=== PATIENT | male | born 1950 | race Caucasian/White ===

== ENCOUNTER → 2024-03-05 | Outpatient (CLI) | payer OTHER, SELFPAY ==
[2024-03-05 17:40] LABS: Thyroid Stimulating Hormone 3.19 uIU/mL (0.55-4.78)
[2024-03-13 06:36] LABS: ANA Screen, IFA NEGATIVE (NEGATIVE)
== END | disposition home or self-care (01) ==
LOC: COPL 15:15
PROVIDERS: PCP Registered Nurse; Referring Provider Specialist; Visit Provider Specialist
DX: R53.83 Other fatigue (principal); R14.0 Abdominal distension (gaseous); R10.10 Upper abdominal pain, unspecified
CPT/HCPCS: 36415; 84443; 86038

== ENCOUNTER → 2024-05-07 | Outpatient (CLI) | payer OTHER, SELFPAY ==
--- NOTE | 2024-05-07 08:41 | XR_ITS ---
Examination: Abdomen sonogram, complete Date and time of exam: May 07, 2024 at 0848 hours INDICATIONS: Onset right upper abdominal pain beginning one month ago. Technique: Multiple real-time grayscale transabdominal sonographic images of the abdomen have been obtained. Findings: Normal gallbladder Normal common bile duct 0.3 cm Pancreatic head 2.6 cm Aorta not enlarged Mild hepatomegaly 16.7 cm fatty infiltration no focal liver lesions Normal hepatopedal portal venous flow Patent IVC Right kidney 9.8 x 6.3 x 6.4 cm cortex 1.7 cm Small benign cysts, the largest 2.2 cm lower pole Left kidney 10.1 x 3.9 x 6.0 cm cortex 1.5 cm 24 mm lower pole cyst Mild bilateral renal parenchymal scar formation Spleen 9.6 cm IMPRESSION: Normal gallbladder Mild hepatomegaly fatty infiltration Mild bilateral renal parenchymal scar formation
== END | disposition home or self-care (01) ==
LOC: CDIM 08:26
PROVIDERS: PCP Family Medicine; Referring Provider Registered Nurse; Visit Provider Registered Nurse
DX: K76.0 Fatty (change of) liver, not elsewhere classified (principal); N28.89 Other specified disorders of kidney and ureter
CPT/HCPCS: 76700

== ENCOUNTER → 2024-05-22 | Outpatient (CLI) | payer OTHER, SELFPAY ==
--- NOTE | 2024-05-22 15:30 | XR_ITS ---
Examination: CT abdomen without intravenous contrast. Coronal 2-D reconstructions. Sagittal 2-D reconstructions. Date and time of exam:May 22, 2024 1523 hours INDICATIONS: Right upper quadrant abdominal pain beginning 45 days ago lap band history CTDI: vol (mGy): 12.1 DLP: (mGycm): 387 Technique: Axial images of the abdomen have been obtained, 3 mm slice thickness, abdomen without intravenous contrast 2-D sagittal coronal reconstructions Low dose protocols were performed. One or more of the following dose reduction techniques were used; automated exposure control, adjustment of the mA and/or KV according to patient size, use of iterative reconstruction technique. Findings: Retrocardiac small gastric hernia Lap band device No focal liver or splenic lesion No gallstones No pancreatic or adrenal mass Perinephric stranding 12 mm left renal cyst 10 mm right renal cyst No renal or ureteral calculi, no hydronephrosis Abdominal aortic calcification no aneurysmal dilatation No pericecal inflammatory change No bowel obstruction IMPRESSION: Perinephric stranding, consider urinary tract infection
== END | disposition home or self-care (01) ==
PROVIDERS: PCP Registered Nurse; Referring Provider Registered Nurse; Visit Provider Registered Nurse
DX: N28.89 Other specified disorders of kidney and ureter (principal)
CPT/HCPCS: 74150

== ENCOUNTER → 2024-06-05 | Outpatient (CLI) | payer OTHER, SELFPAY ==
[2024-06-05 08:04] LABS: Collection Type, Urine Clean Catch
[2024-06-05 08:33] LABS: Basophils % (Auto) 1 % (0-2.5); Eosinophils # (Auto) 0.1 Thou/mm3 (0.0-0.5); Eosinophils % (Auto) 2 % (0-10); Hemoglobin 15.3 g/dL (13.5-16.0); Immature Granulocytes % (Auto) 1 % (0-0); Immature Granulocytes Auto 0.04 Thou/mm3 (0.00-0.00); Lymphocytes # (Auto) 1.6 Thou/mm3 (1.0-4.8); Lymphocytes % (Auto) 27 % (10-50); Mean Corpuscular HGB Conc 33.3 g/dl (31.0-37.0); Mean Corpuscular Hemoglobin 31.4 pg (25.0-35.0); Mean Corpuscular Volume 94 fL (80-100); Monocytes # (Auto) 0.9 Thou/mm3 (0.0-0.8); Monocytes % (Auto) 14 % (0-12); Neutrophils # (Auto) 3.3 Thou/mm3 (1.8-7.7); Neutrophils % (Auto) 56 % (37-80); Nucleated Red Blood Cell % 0 /100 WBC (0); Platelet Count 225 Thou/mm3 (140-440); RDW Standard Deviation 46.3 fL (35.1-43.9); Red Blood Count 4.88 Miln/mm3 (4.50-5.90)
[2024-06-05 08:37] LABS: Glucose Estimated Average 108 mg/dL (80-131); Hemoglobin A1C 5.4 % Hgb (4.8-6.0); Prostate Specific Antigen 3.46 ng/mL (0-4.00)
[2024-06-05 08:44] LABS: Alanine Aminotransferase 24 U/L (10-49); Albumin, Serum 4.2 gm/dL (3.4-4.8); Albumin/Globulin Ratio 1.8 (1.2-2.2); Alkaline Phosphatase 69 U/L (46-116); Anion Gap 5 (7-16); Aspartate Amino Transferase 13 U/L (0-34); BUN/Creatinine Ratio 19 Ratio (12-20); Bilirubin,Total 0.8 mg/dL (0.3-1.2); Blood Urea Nitrogen 19 mg/dL (9-23); Calcium 9.4 mg/dL (8.3-10.6); Calcium (Corrected) 9.4 mg/dL (8.5-10.1); Carbon Dioxide 29.3 mMol/L (20.0-31.0); Cardiac Risk Estimate 2.4 RATIO (4.0-6.7); Chloride 105 mMol/L (98-107); Cholesterol 137 mg/dL (132-200); Globulin 2.3 gm/dL (2.3-3.5); Glucose 98 mg/dL (74-106); HDL Cholesterol 56 mg/dL (40-60); LDL Cholesterol,Calculated 67 mg/dL (0-130); Osmolality,Calculated 279 (275-295); Potassium 4.6 mMol/L (3.4-5.1); Sodium 139 mMol/L (136-145); Thyroid Stimulating Hormone 1.85 uIU/mL (0.55-4.78); Total Protein 6.5 gm/dL (5.7-8.2); Triglycerides 69 mg/dL (30-150); Vitamin B12 364 pg/mL (211-911); Vitamin D 25 Hydroxy Total 26.3 ng/mL (7.3-40.2); eGFR > 60 See Note
[2024-06-05 08:48] LABS: Bacteria,Urine Rare; Bilirubin,Urine Negative (Negative); Blood,Urine Negative (Negative); Clarity,Urine Clear (Clear/Hazy); Color,Urine Yellow (Lt Yel-Yel); Glucose, Urine Negative (Negative); Ketones,Urine Negative (Negative); Leukocyte Esterase,Urine Positive (Negative); Nitrite,Urine Negative (Negative); Protein,Urine Negative (Neg - Trace); RBC,Urine 4 /hpf (0-3); Specific Gravity,Urine 1.022 (1.001-1.035); Squamous Epithelial Cell,Urine < 1 /hpf (0-5); WBC,Urine 15 /hpf (0-5)
[2024-06-05 09:00] LABS: Culture Indicated,Urine Yes
== END | disposition home or self-care (01) ==
LOC: COPL 07:04
PROVIDERS: PCP Family Medicine; Referring Provider Registered Nurse; Visit Provider Registered Nurse
DX: Z00.00 Encounter for general adult medical examination without abnormal findings (principal); N40.1 Benign prostatic hyperplasia with lower urinary tract symptoms; E78.5 Hyperlipidemia, unspecified
CPT/HCPCS: 36415; 80053; 80061; 81001; 82306; 82607; 83036; 84153; 84443; 85025; 87077; 87086; 87186

== ENCOUNTER → 2024-06-25 | Outpatient (CLI) | payer OTHER, SELFPAY ==
--- NOTE | 2024-06-25 16:35 | XR_ITS ---
Examination: Abdomen AP single view Technique: AP portable supine abdomen, single view Exam date and time: June 25, 2024 at 1700 hrs. Indications: Abdominal pain beginning 2 months ago Findings: Lap band device noted Moderate to large amounts of stool in the right colon No obstruction No free air Mild prominence left ventricle Mild to moderate right hip osteoarthritis moderate to advanced left hip osteoarthritis Impression: Moderate to large amounts of stool in the right colon
== END | disposition home or self-care (01) ==
LOC: CDIM 16:28
PROVIDERS: Referring Provider Specialist; Visit Provider Specialist
DX: K59.00 Constipation, unspecified (principal)
CPT/HCPCS: 74018

== ENCOUNTER → 2024-08-16 | Outpatient (BNVA) | payer OTHER, SELFPAY | END | disposition home or self-care (01) | PROVIDERS: PCP Family Medicine; Referring Provider Family Medicine; Visit Provider Urology | DX: N40.1 Benign prostatic hyperplasia with lower urinary tract symptoms (principal); N13.8 Other obstructive and reflux uropathy; I10 Essential (primary) hypertension; E66.9 Obesity, unspecified; F17.210 Nicotine dependence, cigarettes, uncomplicated; E78.00 Pure hypercholesterolemia, unspecified; I25.10 Atherosclerotic heart disease of native coronary artery without angina pectoris; Z95.5 Presence of coronary angioplasty implant and graft; I25.2 Old myocardial infarction | CPT/HCPCS: 81003; 99203; G0463 ==

== ENCOUNTER → 2024-08-17 | Outpatient (BNVA) | payer OTHER, SELFPAY | END | disposition home or self-care (01) | PROVIDERS: PCP Family Medicine; Referring Provider Family Medicine; Visit Provider Urology | DX: Z76.89 Persons encountering health services in other specified circumstances (principal) | CPT/HCPCS: 99212; G0463 ==

== ENCOUNTER → 2024-09-20 | Outpatient (BNVA) | payer OTHER, SELFPAY | END | disposition home or self-care (01) | PROVIDERS: PCP Family Medicine; Referring Provider Family Medicine; Visit Provider Urology | DX: N40.1 Benign prostatic hyperplasia with lower urinary tract symptoms (principal); R39.12 Poor urinary stream; R39.198 Other difficulties with micturition; Z53.8 Procedure and treatment not carried out for other reasons; I10 Essential (primary) hypertension; F17.210 Nicotine dependence, cigarettes, uncomplicated; Z71.6 Tobacco abuse counseling | CPT/HCPCS: 99212; G0463 ==

== ENCOUNTER → 2024-11-01 | Outpatient (BNVA) | payer OTHER, SELFPAY | END | disposition home or self-care (01) | PROVIDERS: PCP Family Medicine; Referring Provider Family Medicine; Visit Provider Urology | DX: N40.1 Benign prostatic hyperplasia with lower urinary tract symptoms (principal); R39.12 Poor urinary stream; I10 Essential (primary) hypertension; E78.00 Pure hypercholesterolemia, unspecified; I25.10 Atherosclerotic heart disease of native coronary artery without angina pectoris; Z95.5 Presence of coronary angioplasty implant and graft; I25.2 Old myocardial infarction; F17.210 Nicotine dependence, cigarettes, uncomplicated | CPT/HCPCS: 51741; 51798 ==

== ENCOUNTER → 2024-12-11 | Outpatient (BNVA) | payer OTHER, SELFPAY | END | disposition home or self-care (01) | PROVIDERS: PCP Family Medicine; Referring Provider Family Medicine; Visit Provider Physician Assistant | DX: N40.1 Benign prostatic hyperplasia with lower urinary tract symptoms (principal); Z87.440 Personal history of urinary (tract) infections; I10 Essential (primary) hypertension; E66.9 Obesity, unspecified; Z68.34 Body mass index [BMI] 34.0-34.9, adult; F17.210 Nicotine dependence, cigarettes, uncomplicated; I25.2 Old myocardial infarction; I25.10 Atherosclerotic heart disease of native coronary artery without angina pectoris; Z95.5 Presence of coronary angioplasty implant and graft; E78.00 Pure hypercholesterolemia, unspecified; G47.30 Sleep apnea, unspecified; Z95.0 Presence of cardiac pacemaker | CPT/HCPCS: Q3014 ==

== ENCOUNTER → 2025-01-21 | Outpatient (CLI) | payer OTHER, SELFPAY ==
--- NOTE | 2025-01-21 15:59 | XR_ITS ---
Examination: Lumbar spine, 5 views Technique: Lumbar spine AP, lateral, coned lateral lower lumbar spine, bilateral obliques 5 views Exam date and time: January 21, 2025 1619 hrs., Comparison July 06, 2021 Indications: Back pain several months. Findings: Moderate osteopenia. Thoracolumbar dextroscoliosis 15 degrees Moderate narrowing hip joints Diffuse moderate facet arthropathy Prominent lumbar spondylosis Moderate to advanced diffuse lumbar degenerative disc disease, most severe at L1-L2, L2-L3, L5-S1 No spondylolisthesis Impression: Moderate to advanced diffuse lumbar degenerative disc disease with significant spinal stenosis, most severe L1-L2, L2-L3, L5-S1
== END | disposition home or self-care (01) ==
LOC: CDIM 15:50
PROVIDERS: Referring Provider Registered Nurse; Visit Provider Registered Nurse
DX: M51.360 Other intervertebral disc degeneration, lumbar region with discogenic back pain only (principal); M48.061 Spinal stenosis, lumbar region without neurogenic claudication; M51.370 Other intervertebral disc degeneration, lumbosacral region with discogenic back pain only; M48.07 Spinal stenosis, lumbosacral region
CPT/HCPCS: 72110

== ENCOUNTER 2025-01-27 04:28 | Emergency (ER) | payer OTHER, SELFPAY ==
[2025-01-27 04:28] VITALS: BMI 34.2
[2025-01-27 04:39] VITALS: BP 156/94; RESP 18; TEMP 36.8; O2SAT 98
--- NOTE | 2025-01-27 05:09 | PD.EDBACK ---
ED Back Injury Pain RME/HPI General Chief Complaint: Back Pain/Injury Stated Complaint: LOW BACK PAIN Time Seen by Provider: 01/27/25 05:07 Arrival date/time: 01/27/25 04:28 This is a case of 74-year-old male who came in in the emergency room due to bilateral flank pain radiating to the lower back today denies any abdominal pain nausea vomiting fever or chills patient was here yesterday where a full workup was performed patient to blood test was reviewed and everything were normal urinalysis was also normal patient ultrasound showed a nephrolithiasis patient have history of chronic back pain kidney stone and BPH patient stated that he was told with the previous provider that there if there will be a recurrence of pain he just need to come back here for a Toradol shot patient denies any numbness weakness tingling sensation denies any incontinence to urine or stool Limitations: no limitations Related Data Home Medications ?Medication ?Instructions ?Recorded ?Confirmed aspirin 81 mg tablet,delayed 81 mg PO QDAY 10/24/18 12/11/24 release tamsulosin 0.4 mg capsule 0.8 mg PO HS 12/14/22 12/11/24 atorvastatin 40 mg tablet 40 mg PO QDAY 03/06/24 12/11/24 amlodipine 5 mg tablet 5 mg PO QDAY 08/16/24 12/11/24 lisinopril 40 mg tablet 40 mg PO QDAY 08/16/24 12/11/24 Previous Rx's ?Medication ?Instructions ?Recorded ciprofloxacin HCl 500 mg tablet 500 mg PO Q12H #10 tabs 01/26/25 Allergies Allergy/AdvReac Type Severity Reaction Status Date / Time finasteride (From Proscar) Allergy Severe Hypotension Verified 01/27/25 04:31 bupropion (From Wellbutrin) Allergy Drowsy Verified 01/27/25 04:31 duloxetine (From Cymbalta) Allergy Diarrhea Verified 01/27/25 04:31 terazosin Allergy Verified 01/27/25 04:31 Review of Systems Review of Systems Systems Reviewed: All systems reviewed, normal except as documented Constitutional Constitutional: Reports system reviewed and no additional complaints, except as documented and Reports as per HPI Cardiovascular Cardiovascular: Reports system reviewed and no additional complaints, except as documented and Reports as per HPI Respiratory Respiratory: Reports system reviewed and no additional complaints, except as documented and Reports as per HPI Gastrointestinal Gastrointestinal: Reports system reviewed and no additional complaints, except as documented and Reports as per HPI Genitourinary Genitourinary: Reports system reviewed and no additional complaints, except as documented and Reports as per HPI Musculoskeletal Musculoskeletal: Reports system reviewed and no additional complaints, except as documented and Reports as per HPI Neurologic Neurologic: Reports system reviewed and no additional complaints, except as documented and Reports as per HPI Past Medical History Past Medical History NEUROLOGIC: Negative Neurological Disorders or Seizures CARDIAC: Positive Cardiac Disorders, Myocardial Infarction, Cardiac Arrhythmia, Angina, Coronary Artery Disease (s/p stents), Hypercholesterolemia and Hypertension; Negative Congestive Heart Failure, Edema or Cellulitis (BRUISING MONO ARMS) RESPIRATORY: Positive Sleep Apnea (uses cpap at night); Negative Chronic Obstructive Pulmonary Disease (COPD) or Tuberculosis GASTROINTESTINAL: Positive Gastrointestinal Disorders; Negative Hepatitis GENITOURINARY: Positive Genitourinary Disorders and Benign Prostatic Hyperplasia; Negative Renal Disease MUSCULOSKELETAL: Positive Musculoskeletal Disorders, Arthritis, Carpal Tunnel Syndrome (bilateral hands) and Fractures ENT: Negative Glaucoma ENDOCRINE: Negative Endocrine Disorders, Diabetes Mellitus Type 1 or Diabetes Mellitus Type 2 HEMATOLOGIC: Negative Blood Disorders PSYCHO/SOCIAL: Positive Depression (in the past) OTHER HISTORY: Positive Hospitalization, Measles and Mumps; Negative Autoimmune Disease, Shingles, Falls, Blood Transfusions (na), Anesthesia Reactions, Chemotherapy, Radiation Therapy, MRSA, Chicken Pox or Cancer Family History FAMILY HISTORY: Positive Family Cardiac Disorders, Family Gastrointestinal Problems, Family Cancer and Family Surgery; Negative Family Psychiatric Problems, Family Respiratory Disorders or Family Anesthesia Reaction Surgical History SURGICAL: Positive Cardiac Surgery, Coronary Stent (x2), Pacemaker, Angiogram (2018), Nose Surgery (sinus sx), Abdominal Surgery and Gastric Bypass Surgery (gastric band) Social History SMOKING STATUS: Current every day smoker ED Exam General Limitations: Present no limitations General appearance: Present alert, in no apparent distress and other (Patient is awake alert oriented not in distress nontoxic looking well-hydrated well-nourished) Head Head exam: Present atraumatic, normocephalic and normal inspection Eye Eye exam: Present normal appearance, PERRL and EOMI ENT ENT exam: Present normal exam, normal oropharynx and mucous membranes moist Neck Neck exam: Present normal inspection, full ROM and trachea midline; Absent tenderness, meningismus, lymphadenopathy or thyromegaly Chest Chest inspection: Present normal inspection and symmetric chest wall rise; Absent tenderness Respiratory Respiratory exam: Present normal lung sounds bilaterally; Absent respiratory distress, wheezes, stridor, accessory muscle use or prolonged expiratory phase Cardiovascular Cardiovascular exam: Present regular rate, normal rhythm and normal heart sounds; Absent bradycardia, tachycardia, irregular rhythm, systolic murmur or diastolic murmur Abdominal Exam Abdominal exam: Present soft and normal bowel sounds; Absent distention, tenderness, guarding, rebound, rigidity, diminished bowel sounds, hyperactive bowel sounds, hypoactive bowel sounds, obturator sign, Hart's sign, Rovsing's sign, tenderness at McBurney's Point or hernia Extremities Exam Extremities exam: Present normal inspection and full ROM Back Exam Back exam: Present normal inspection, full ROM and tenderness (Mild tenderness in lumbar area no crepitation no deformity no redness no swelling ROM intact neurovascular intact); Absent CVA tenderness (R), CVA tenderness (L), muscle spasm, paraspinal tenderness, vertebral tenderness, sciatic notch tenderness (R), sciatic notch tenderness (L), straight leg raise (R) or straight leg raise (L) Neurological Exam Neurological exam: Present alert, oriented X3, CN II-XII intact, normal gait and reflexes normal; Absent motor sensory deficit Psychiatric Psychiatric exam: Present normal affect and normal mood Skin Skin exam: Present warm, dry, intact and normal color Course Quality Measures none Orders Category Date Time Status HYDROcodone/APAP 10/325 [[place] 10/325] Med 01/27/25 05:08 Discontinued 1 tab PO X1 ONE Ketorolac Inj [Toradol Inj] Med 01/27/25 05:08 Once 30 mg IM X1 ONE Vital Signs Vital signs: Vital Signs Temperature 98.3 F 01/27/25 04:39 Respiratory Rate 18 01/27/25 04:39 Blood Pressure 156/94 H 01/27/25 04:39 Pulse Oximetry (%) 98 01/27/25 04:39 Oxygen Delivery Method Room Air 01/27/25 04:39 Oxygen saturation is 98% in room air normal Back Pain / Injury MDM Narrative MDM Narrative:: This is a case of 74-year-old male who came in in the emergency room due to bilateral flank pain radiating to the lower back today denies any abdominal pain nausea vomiting fever or chills patient was here yesterday where a full workup was performed patient to blood test was reviewed and everything were normal urinalysis was also normal patient ultrasound showed a nephrolithiasis patient have history of chronic back pain kidney stone and BPH patient stated that he was told with the previous provider that there if there will be a recurrence of pain he just need to come back here for a Toradol shot patient denies any numbness weakness tingling sensation denies any incontinence to urine or stool physical examination patient is awake alert oriented not in distress nontoxic looking vital signs stable BP stable not tachycardic not tachypneic afebrile and nonhypoxic patient abdominal exam is benign nonsurgical no guarding no rebound no rigidity no tenderness negative psoas negative straight or negative Rovsing's no [place]'s no Hart sign negative CVA tenderness patient noted to have mild tenderness in the lumbar area but no crepitation no deformity no redness no swelling leg raise exam is negative steady gait ROM intact neurovascular intact patient only requested Toradol and [place] for pain which was given patient was observed for 30 minutes pain improved and resolved patient will follow-up with PCP to be referred to urologist for kidney stone neurosurgeon for chronic back pain for possible MRI to ruled out herniated disc and need to be referred to pain management for pain control for any recurrence persistent worsening symptoms or any emergent concern he will return in the emergency room immediately or call 911 no signs and symptoms of cauda equina Patient was discharged with comfortable condition walking with stable gait. Patient verbalized no further complains explained diagnosis and answered patient question. Patient is comfortable with the proposed management plan including the need to follow up with his/her primary care physician and any specialist if applicable Discussed patient for any urgent condition or worsening sx, He/She needed to go to emergency room immediately or call 911. Patient acknowledge the responsibility to follow up as instructed and to monitor her/his symptoms. For any persistence of the symptoms for more than 3-5 days return precaution advised. Discussed the result of the test and was given printed discharge instruction Patient data External records reviewed:: [facility] previous records Clinical information provided by:: patient Social determinants that could affect healthcare access:: none Patient has the following chronic illnesses:: None How is presenting disease/condition affected by chronic disease/condition?: no chronic disease Evaluation data The following diagnostics were reviewed and interpreted by me:: other (specify) (None) Lab and/or radiology exams considered but not ordered:: None Interpretation Summary: None Medications / Prescriptions Medications or Prescriptions considered but not ordered:: Given Medication administrations:: Medication Administration History Ketorolac Tromethamine (Ketorolac Inj 60 Mg/2 Ml Vial) 30 mg IM X1 ONE Stop: 01/27/25 05:09 Discontinued Medications Hydrocodone Bitart/Acetaminophen (Hydrocodone/Apap 10/325 Tab) 1 tab PO X1 ONE Stop: 01/27/25 05:09 Given Consultations Consultation(s) initiated? (list below): No Diagnosis Differential diagnosis back pain/injury: lumbar radiculopathy, sciatica and strain of lumbar region Most likely diagnosis given after review of the tests above:: Chronic low back pain nephrolithiasis Admission Indicated Admission indicated?: not indicated Explain why admission is indicated or not indicated:: Not indicated Admission Request Was there a request for admission?: No Admission Attestation Admission request attestation: Not indicated Disposition Plan Disposition Plan: Discharge Discharge Attestation Discharge Attestation: The patient and all family members were given an opportunity to ask questions and understood the discharge instructions. Discharge instructions specifically effects, indications for sooner follow up or return to the emergency department, and the expected course of current diagnosis. Patient condition: Stable Discharge Plan Plan Patient Disposition: HOME (Self Care) Prescriptions/Referrals Prescriptions/Med Rec: No Action amlodipine 5 mg tablet 5 mg PO QDAY lisinopril 40 mg tablet 40 mg PO QDAY aspirin 81 mg tablet,delayed release (DR/EC) 81 mg PO QDAY atorvastatin 40 mg tablet 40 mg PO QDAY tamsulosin 0.4 mg capsule 0.8 mg PO HS Patient Comments: TAKE 2 CAPSULES BY MOUTH EVERY DAY ciprofloxacin HCl 500 mg tablet 500 mg PO Q12H Qty: 10 0RF Problem List Clinical Impression: Back muscle spasm, Nephrolithiasis Patient/Caregiver Discharge Instructions Education Materials: Kidney Stones: Your Evaluation, ED Back Spasm, No Trauma Additional Instructions: Follow-up with your primary care physician in 2 days for reevaluation and to be referred to a urologist for your kidney stone and neurosurgeon for your chronic back pain and you need also to be referred to pain management doctor for pain control recurrence persistent worsening symptoms or any emergent concern call 911 or go to the nearest emergency room continue to take your medication as prescribed by the previous provider Print Language: Syriac Stand Alone Forms: [facility]ica Award Info., Patient Portal Info Letter PA/PUJA Supervising Physician PA/PUJA Supervising Physician: Dr. Chico Pressley
[2025-01-27] MEDS: KETOROLAC INJ 60 MG/2 ML VIAL 30 MG IM (05:17)
== END 2025-01-27 05:23 | disposition home or self-care (01) ==
LOC: SERX 05:26
PROVIDERS: Emergency Provider Emergency Medicine
DX: N20.0 Calculus of kidney (principal); M62.830 Muscle spasm of back
CPT/HCPCS: 96372; 99283; J1885; A9270

== ENCOUNTER → 2025-02-05 | Outpatient (CLI) | payer OTHER, SELFPAY ==
--- NOTE | 2025-02-05 13:15 | XR_ITS ---
Examination: MRI lumbar spine without contrast Date and time of exam: February 05, 2025, 1420 1:00 p.m., comparison December 09, 2021 INDICATIONS: Low back pain years, worse last 3 weeks, radiating both legs with loss of function and weakness in both legs Technique: Multiple MRI axial and sagittal sections lumbar spine. Sagittal T2-weighted images, TR 3500, TE 118 T1 weighted transverse sections, TR 688 T8.5, T2-weighted sagittal sections T1 weighted sagittal sections TR 621, TE 30 T2 axial sections, TR 4, 190, TE 84. Findings: Adequate alignment lumbar vertebral bodies on the lateral view No acute lumbar fracture Heterogeneous marrow signal lumbar vertebral bodies Prominent lumbar spondylosis Diffuse moderate to advanced lumbar degenerative disc disease, most severe at L5-S1 L5-S1 6 mm central lumbar disc bulge contiguous with the right and left S1 nerve roots and producing mild right L5 ganglionic compression L4-L5 4 mm central lumbar disc bulge L3-L4 2 mm central lumbar disc bulge L2-L3 extruded disc, 17 mm, primarily behind the L3 vertebral body L1-L2 small foraminal disc bulges IMPRESSION: Moderate to advanced diffuse lumbar degenerative disc disease L5-S1 6 mm central lumbar disc bulge L4-L5 4 mm central lumbar disc bulge L2-L3 17 mm extruded disc, primarily posterior to the L3 vertebral body
== END | disposition home or self-care (01) ==
PROVIDERS: PCP Registered Nurse; Referring Provider Registered Nurse; Visit Provider Registered Nurse
DX: M51.370 Other intervertebral disc degeneration, lumbosacral region with discogenic back pain only (principal); M51.360 Other intervertebral disc degeneration, lumbar region with discogenic back pain only; M51.26 Other intervertebral disc displacement, lumbar region
CPT/HCPCS: 72148

== ENCOUNTER → 2025-03-22 | Outpatient (BNVA) | payer OTHER, SELFPAY | END | disposition home or self-care (01) | PROVIDERS: PCP Registered Nurse; Referring Provider Registered Nurse; Visit Provider Urology | DX: N40.1 Benign prostatic hyperplasia with lower urinary tract symptoms (principal); N39.41 Urge incontinence; N32.0 Bladder-neck obstruction; I10 Essential (primary) hypertension; F17.210 Nicotine dependence, cigarettes, uncomplicated; Z71.6 Tobacco abuse counseling | CPT/HCPCS: 99212; G0463 ==

== ENCOUNTER → 2025-04-10 | Outpatient (CLI) | payer OTHER, SELFPAY ==
[2025-04-10 08:30] LABS: Basophils # (Auto) 0.0 Thou/mm3 (0.0-0.2); Basophils % (Auto) 1 % (0-2.5); Eosinophils # (Auto) 0.4 Thou/mm3 (0.0-0.5); Eosinophils % (Auto) 6 % (0-10); Hematocrit 43.6 % (41.0-53.0); Hemoglobin 13.9 g/dL (13.5-16.0); Immature Granulocytes Auto 0.03 Thou/mm3 (0.00-0.00); Lymphocytes # (Auto) 1.7 Thou/mm3 (1.0-4.8); Lymphocytes % (Auto) 27 % (10-50); Mean Corpuscular HGB Conc 31.9 g/dl (31.0-37.0); Mean Corpuscular Hemoglobin 29.9 pg (25.0-35.0); Mean Corpuscular Volume 94 fL (80-100); Monocytes # (Auto) 0.7 Thou/mm3 (0.0-0.8); Monocytes % (Auto) 11 % (0-12); Neutrophils # (Auto) 3.5 Thou/mm3 (1.8-7.7); Neutrophils % (Auto) 56 % (37-80); Nucleated Red Blood Cell # 0.00 Thou/mm3 (0.00-0.00); Nucleated Red Blood Cell % 0 /100 WBC (0); Platelet Count 227 Thou/mm3 (140-440); RDW Standard Deviation 51.2 fL (35.1-43.9); Red Blood Count 4.65 Miln/mm3 (4.50-5.90); White Blood Count 6.3 Thou/mm3 (3.8-10.6)
[2025-04-10 08:40] LABS: B-Type Natriuretic Peptide 61 pg/mL (0-100)
[2025-04-10 12:48] LABS: Alanine Aminotransferase 9 U/L (10-49); Albumin, Serum 4.4 gm/dL (3.4-4.8); Alkaline Phosphatase 116 U/L (46-116); Anion Gap 13 (7-16); Aspartate Amino Transferase 14 U/L (0-34); BUN/Creatinine Ratio 16 Ratio (12-20); Bilirubin,Direct 0.2 mg/dL (0.0-0.3); Bilirubin,Total 0.5 mg/dL (0.3-1.2); Blood Urea Nitrogen 14 mg/dL (9-23); Calcium 9.2 mg/dL (8.3-10.6); Carbon Dioxide 26.0 mMol/L (20.0-31.0); Cardiac Risk Estimate 4.2 RATIO (4.0-6.7); Chloride 108 mMol/L (98-107); Cholesterol 181 mg/dL (132-200); Creatinine (Component) 0.9 mg/dL (0.6-1.3); Free T4 (Free Thyroxine) 1.17 ng/dL (0.89-1.76); Glucose 106 mg/dL (74-106); HDL Cholesterol 43 mg/dL (40-60); LDL Cholesterol,Calculated 123 mg/dL (0-130); Osmolality,Calculated 292 (275-295); Potassium 4.0 mMol/L (3.4-5.1); Sodium 147 mMol/L (136-145); Thyroid Stimulating Hormone 2.63 uIU/mL (0.55-4.78); Total Protein 7.4 gm/dL (5.7-8.2); Triglycerides 73 mg/dL (30-150); eGFR > 60 See Note
== END | disposition home or self-care (01) ==
LOC: COPL 07:04
PROVIDERS: PCP Registered Nurse; Referring Provider Internal Medicine Cardiovascular Disease; Visit Provider Internal Medicine Cardiovascular Disease
DX: I11.0 Hypertensive heart disease with heart failure (principal); I50.9 Heart failure, unspecified; E78.5 Hyperlipidemia, unspecified; E07.9 Disorder of thyroid, unspecified
CPT/HCPCS: 36415; 80048; 80061; 80076; 83880; 84439; 84443; 85025